=== PATIENT | female | born 1965 | race Caucasian/White ===

== ENCOUNTER 2019-07-03 11:19 | Day surgery (SDC) | payer BC ==
[2019-07-03] VITALS (16 sets, daily range): BP systolic 94–140; BP diastolic 53–77; PULSE 56–88; RESP 14–27; Ht 165.1 cm; Wt 75.0 kg
[~2019-07-03] VITALS: Ht 165.1 cm; Wt 75.0 kg
[~2019-07-03 11:19] MED LIST: ATOR10TA65 PO
[2019-07-03] MEDS ORDERED: SEVOFLURANE 15 MIN ONE (13:00)
[2019-07-03] MEDS ORDERED: NEOSTIGMINE 3 MG/3 ML SYRINGE ONE (13:00)
[2019-07-03] MEDS ORDERED: LACTATED RINGER'S 1,000 ML IV SCH (13:00)
[2019-07-03] MEDS ORDERED: PROPOFOL 20 ML ONE (13:19)
[2019-07-03] MEDS ORDERED: METOCLOPRAMIDE 10 MG INJ ONE (13:20)
[2019-07-03] MEDS ORDERED: ONDANSETRON 4 MG INJ ONE ×2 (13:20→15:25)
[2019-07-03] MEDS ORDERED: MIDAZOLAM 1 MG/ML 2 ML INJ ONE (13:20)
[2019-07-03] MEDS ORDERED: FENTAnyl 50 MCG/ML VIAL ONE ×2 (13:20→15:26)
[2019-07-03] MEDS ORDERED: CEFAZOLIN 1 GM INJ ONE (13:36)
[2019-07-03] MEDS ORDERED: EPHEDrine 25 MG/5 ML SYG ONE (14:01)
[2019-07-03] MEDS ORDERED: POLYMYXIN/BACITRACIN 1L IRRIG ONE (14:07)
[2019-07-03] MEDS ORDERED: GLYCOPYRROLATE 0.4 MG INJ ONE (14:15)
[2019-07-03] MEDS ORDERED: BUPIVACAINE 0.25% (MPF) 30 ML INJ ONE (14:57)
[2019-07-03] MEDS ORDERED: PROCHLORPERAZINE 10 MG INJ IV PRN (15:00)
[2019-07-03] MEDS ORDERED: ONDANSETRON 4 MG INJ IV PRN (15:00)
[2019-07-03] MEDS ORDERED: FENTAnyl 50 MCG/ML VIAL IV PRN (15:00)
[2019-07-03] MEDS ORDERED: HYDROmorphONE 1 MG/5 ML IV SYRINGE IV PRN (15:00)
[2019-07-03] MEDS ORDERED: OXYCODONE/ACETAMINOPHEN (5/325) TAB PO PRN (15:00)
[2019-07-03] MEDS ORDERED: DEXAMETHASONE 4 MG/ML 1 ML INJ ONE (15:00)
[2019-07-03] MEDS ORDERED: MEPERIDINE 25 MG INJ IV PRN (15:00)
[2019-07-03] MEDS ORDERED: MEPERIDINE 25 MG INJ ONE (15:25)
== END 2019-07-03 18:28 | disposition home or self-care (01) ==
LOC: SDS 11:19
PROVIDERS: ATTEND Podiatrist Foot & Ankle Surgery
DX: S92.351D Displaced fracture of fifth metatarsal bone, right foot, subsequent encounter for fracture with routine healing (principal); X58.XXXD Exposure to other specified factors, subsequent encounter; D16.31 Benign neoplasm of short bones of right lower limb; M20.41 Other hammer toe(s) (acquired), right foot
CPT/HCPCS: 28124; 28485; 73620; 73630; C1713; J0690; J0780; J1100; J1170; J2175; J2250; J2405; J2710; J2765; J3010